=== PATIENT | male | born 1995 | race Caucasian/White ===

== ENCOUNTER 2019-02-20 22:10 | Emergency (ER) | payer SELFPAY ==
[~2019-02-20] VITALS: Ht 188 cm; Wt 86.4 kg
[2019-02-20 22:19] VITALS: TEMP 98.8
[2019-02-20 23:31] VITALS: BP 125/81; PULSE 86
== END 2019-02-20 23:32 | disposition home or self-care (01) ==
LOC: COL.ER 22:10
DX: S61.215A Laceration without foreign body of left ring finger without damage to nail, initial encounter (principal); F17.210 Nicotine dependence, cigarettes, uncomplicated; W26.0XXA Contact with knife, initial encounter; Y92.59 Other trade areas as the place of occurrence of the external cause